=== PATIENT | male | born 1975 | race Caucasian/White ===

== ENCOUNTER 2016-12-18 20:33 | Emergency (ER) | payer SELFPAY ==
[~2016-12-18] VITALS: Ht 157.5 cm; Wt 49.6 kg
[~2016-12-18 20:33] MED LIST: DOXY100C2 PO; SULF1TAB24 PO
[2016-12-18 20:45] VITALS: BP 132/81
[2016-12-18 21:21] LABS: PATH.CAST-FLAG NOT PRESENT; SPERM-FLAG NOT PRESENT; SRC-FLAG NOT PRESENT; XTAL-FLAG NOT PRESENT; YLC-FLAG NOT PRESENT
[2016-12-18] MEDS ORDERED: AZITHROMYCIN 500 MG TABLET PO ONE (21:30)
[2016-12-18] MEDS ORDERED: CEFTRIAXONE 1,000 MG IM ONE (21:30)
[2016-12-18] MEDS ORDERED: AZITHROMYCIN 500 MG TABLET ONE (21:50)
[2016-12-18] MEDS ORDERED: LIDOCAINE 1%, 20ML ONE (21:51)
[2016-12-18] MEDS ORDERED: CEFTRIAXONE 250 MG ONE (21:51)
== END 2016-12-18 22:24 | disposition home or self-care (01) ==
LOC: ED 22:19
DX: N34.1 Nonspecific urethritis (principal)
CPT/HCPCS: 81001; 87086; 87491; 87591; 96372; 99284; J0696

== ENCOUNTER 2017-06-29 14:59 | Emergency (ER) | payer OTHER ==
[~2017-06-29] VITALS: Ht 162.6 cm; Wt 47.2 kg
[2017-06-29 15:22] VITALS: BP 108/66
== END 2017-06-29 16:53 | disposition home or self-care (01) ==
LOC: ED 16:14
DX: B34.9 Viral infection, unspecified (principal)
CPT/HCPCS: 71020; 99284

== ENCOUNTER 2017-09-22 11:42 | Emergency (ER) | payer OTHER ==
[~2017-09-22] VITALS: Ht 157.5 cm; Wt 49.8 kg
[2017-09-22 11:49] VITALS: BP 106/70
[2017-09-22] MEDS ORDERED: CEFTRIAXONE 250 MG ONE (12:25)
[2017-09-22] MEDS ORDERED: LIDOCAINE-MPF 1%, 2ML ONE (12:25)
[2017-09-22] MEDS ORDERED: AZITHROMYCIN 250 MG TABLET ONE (12:25)
[2017-09-22] MEDS ORDERED: AZITHROMYCIN 500 MG TABLET PO ONE (12:30)
[2017-09-22] MEDS ORDERED: CEFTRIAXONE 250 MG IM ONE (12:30)
== END 2017-09-22 12:51 | disposition home or self-care (01) ==
LOC: ED 12:10
DX: Z20.2 Contact with and (suspected) exposure to infections with a predominantly sexual mode of transmission (principal)
CPT/HCPCS: 87491; 87591; 96372; 99284; J0696

== ENCOUNTER 2018-03-01 19:44 | Emergency (ER) | payer SELFPAY ==
[~2018-03-01] VITALS: Ht 162.6 cm; Wt 48.8 kg
[2018-03-01 19:47] VITALS: BP 112/72
[2018-03-01] MEDS ORDERED: CEFTRIAXONE 250 MG ONE (19:59)
[2018-03-01] MEDS ORDERED: AZITHROMYCIN 500 MG TABLET ONE (19:59)
[2018-03-01] MEDS ORDERED: CEFTRIAXONE 250 MG IM ONE (20:00)
[2018-03-01] MEDS ORDERED: AZITHROMYCIN 500 MG TABLET PO ONE (20:00)
== END 2018-03-01 21:00 | disposition home or self-care (01) ==
LOC: ED 20:54
DX: A56.8 Sexually transmitted chlamydial infection of other sites (principal); A54.9 Gonococcal infection, unspecified
CPT/HCPCS: 87491; 87591; 96372; 99284; J0696

== ENCOUNTER 2019-01-07 12:56 | Emergency (ER) | payer SELFPAY ==
[~2019-01-07] VITALS: Ht 160 cm; Wt 50.2 kg
[2019-01-07 13:04] VITALS: BP 110/69
[2019-01-07] MEDS ORDERED: CARBAMIDE PEROXIDE EAR DROPS 6.5%, 15ML LEFT EAR ONE (14:00)
[2019-01-07] MEDS ORDERED: CARBAMIDE PEROXIDE EAR DROPS 6.5%, 15ML ONE (14:15)
== END 2019-01-07 15:30 | disposition home or self-care (01) ==
LOC: ED 13:43
DX: H61.22 Impacted cerumen, left ear (principal)
CPT/HCPCS: 69209; 99282

== ENCOUNTER 2019-08-12 08:15 | Emergency (ER) | payer SELFPAY ==
[~2019-08-12] VITALS: Ht 157.5 cm; Wt 51.1 kg
[2019-08-12 08:28] VITALS: BP 119/65
[2019-08-12] MEDS ORDERED: CEFTRIAXONE 250 MG IM ONE (09:00)
[2019-08-12] MEDS ORDERED: AZITHROMYCIN 500 MG TABLET PO ONE (09:00)
[2019-08-12] MEDS ORDERED: CEFTRIAXONE 250 MG ONE (09:21)
[2019-08-12] MEDS ORDERED: AZITHROMYCIN 500 MG TABLET ONE (09:21)
== END 2019-08-12 09:43 | disposition home or self-care (01) ==
LOC: ED 09:20
DX: N34.2 Other urethritis (principal)
CPT/HCPCS: 87491; 87591; 96372; 99283; J0696

== ENCOUNTER 2021-01-04 10:29 | Emergency (ER) | payer SELFPAY ==
[~2021-01-04] VITALS: Ht 160 cm; Wt 48.0 kg
[~2021-01-04 10:29] MED LIST changes: +SULF-23 PO; -SULF1TAB24 PO
[2021-01-04 10:47] VITALS: BP 122/74
--- NOTE | 2021-01-04 10:56 | NUR ---
INTINAL CONTACT W/ PT: C/O IRRITATION L EYE SINCE LAST WED. PT WITH STEADY GAIT TO EYE EXAM CHAIR. VSS. NADN. AWAITING ORDERS
[2021-01-04] MEDS ORDERED: FLUORESCEIN OPHTHALMIC 1 MG STRIP ONE (11:47)
[2021-01-04] MEDS ORDERED: PROPARACAINE OPHTH 0.5%, 15ML ONE (11:48)
[2021-01-04] MEDS ORDERED: PROPARACAINE OPHTH 0.5%, 15ML EACHEYE ONE (12:00)
[2021-01-04] MEDS ORDERED: FLUORESCEIN OPHTHALMIC 1 MG STRIP EACHEYE ONE (12:00)
--- NOTE | 2021-01-04 13:10 | NUR ---
Patient given discharge instructions and they have confirmed that they understand the instructions. Patient ambulatory with steady gait. NAD, all questions answered appropriately, denies additional needs at this time. No personal belongings left in room after discharge.
== END 2021-01-04 13:11 | disposition home or self-care (01) ==
LOC: ED 12:06
DX: T15.02XA Foreign body in cornea, left eye, initial encounter (principal); X58.XXXA Exposure to other specified factors, initial encounter; Y93.89 Activity, other specified; Y92.89 Other specified places as the place of occurrence of the external cause; Y99.8 Other external cause status
CPT/HCPCS: 65222; 99284

== ENCOUNTER 2021-02-24 18:23 | Emergency (ER) | payer OTHER ==
[~2021-02-24] VITALS: Ht 160 cm; Wt 49.3 kg
[2021-02-24 18:49] LABS: BASOPHILS % (AUTO) 0 % (0-1); EOSINOPHILS % (AUTO) 1 % (1-7); LYMPHOCYTES % (AUTO) 9 % (22-44); MEAN CORPUSCULAR HEMOGLOBIN 31.8 pg (27.5-34.5); MEAN PLATELET VOLUME 7.6 fL (7.4-10.4); MONOCYTES % (AUTO) 5 % (2-9); NEUTROPHILS % (AUTO) 85 % (42-75); PLATELET COUNT 227 x10^3/uL (130-400); RED BLOOD COUNT 5.42 x10^6/uL (4.38-5.82); RED CELL DISTRIBUTION WIDTH 13.1 % (9.4-14.8)
[2021-02-24 19:01] LABS: ALANINE AMINOTRANSFERASE 27 U/L (12-78); ALBUMIN 3.9 g/dL (3.4-5.0); ANION GAP 6 mmol/L (5-15); CALCIUM 9.3 mg/dL (8.5-10.1); CHLORIDE 101 mmol/L (98-107); CREATININE 0.96 mg/dL (0.7-1.3)
[2021-02-24 19:03] LABS: ALKALINE PHOSPHATASE 90 U/L (45-117); BILIRUBIN,TOTAL 0.9 mg/dL (0.2-1.0); TOTAL PROTEIN 8.2 g/dL (6.4-8.2)
--- NOTE | 2021-02-24 20:01 | NUR ---
pt c/o of increased urinary frequency, painful urination, and hematuria denies fever/chills, n/v, cp, sob. no swelling in perineal area noted. attached to monmitors, vss. duarte. gf at bedside bed in low, rails engaged. call light on lap. wctm,
[2021-02-24] MEDS ORDERED: KETOROLAC 30 MG/1 ML ONE (20:08)
[2021-02-24 20:20] LABS: MICROSCOPIC INDICATED
[2021-02-24] MEDS ORDERED: KETOROLAC 30 MG/1 ML IM ONE (20:30)
[2021-02-24] MEDS ORDERED: CEFTRIAXONE 1,000 MG in DEXTROSE 5% 50 ML IVPB ONE (21:00)
[2021-02-24] MEDS ORDERED: SODIUM CHLORIDE FLUSH 10ML SYR IVF ONE (21:00)
[2021-02-24] MEDS ORDERED: SODIUM CHLORIDE 0.9% 1,000ML IVBOLUS ONE (21:00)
--- NOTE | 2021-02-24 21:24 | NUR ---
pt resting in bed. 2 blood cultures pulled, bracelet on pt. atx started. nadn. villegas. elizabethtm
[2021-02-24 23:56] VITALS: BP 105/57
--- NOTE | 2021-02-24 23:57 | NUR ---
LATE ENTRY DUE TO PT CARE. Patient/Caregiver given discharge instructions and they have confirmed that they understand the instructions. Patient ambulatory with steady gait. NAD, all questions answered appropriately, denies additional needs at this time. No personal belongings left in room after discharge.
== END 2021-02-24 23:59 | disposition home or self-care (01) ==
LOC: ED 21:32
DX: N30.01 Acute cystitis with hematuria (principal); N40.0 Benign prostatic hyperplasia without lower urinary tract symptoms; F17.210 Nicotine dependence, cigarettes, uncomplicated; R30.0 Dysuria
CPT/HCPCS: 36415; 74176; 80053; 81001; 83605; 84145; 85025; 87040; 87077; 87086; 87186; 96365; 96372; 99285; J0696; J1885; J7030